=== PATIENT | female | born 1975 ===

== ENCOUNTER 2017-04-13 09:06 | Emergency (ER) | payer OTHER ==
[2017-04-13 09:38] VITALS: TEMP 98.1; O2SAT 98
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
[2017-04-13 11:08] VITALS: BP 122/78; PULSE 82; RESP 16
--- NOTE | 2017-04-13 11:28 | RAD ---
PROCEDURE: Cervical Spine Radiographs. HISTORY: Pain. COMPARISON: None. FINDINGS: BONES: Alignment maintained. No fracture. Dens Intact. DISC SPACES: Normal. SOFT TISSUES: Normal. No prevertebral soft tissue swelling. OTHER FINDINGS: None. IMPRESSION: Normal cervical spine radiographs
== END 2017-04-13 11:08 | disposition home or self-care (01) ==
LOC: H.ER 09:06
DX: S13.9XXA Sprain of joints and ligaments of unspecified parts of neck, initial encounter (principal); V43.52XA Car driver injured in collision with other type car in traffic accident, initial encounter; Y92.410 Unspecified street and highway as the place of occurrence of the external cause; E78.00 Pure hypercholesterolemia, unspecified

== ENCOUNTER 2018-02-23 01:07 | Observation (INO) | payer OTHER ==
[2018-02-23 01:15] VITALS: RESP 18
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
[2018-02-23 13:10] VITALS: BP 121/83; PULSE 94; TEMP 98.5; O2SAT 97
== END 2018-02-23 08:00 | disposition home or self-care (01) ==
LOC: H.EROB2 01:07 → H.L&D 02:48
PROVIDERS: ADMIT Obstetrics & Gynecology; ATTEND Obstetrics & Gynecology
DX: Z04.1 Encounter for examination and observation following transport accident (principal); O24.410 Gestational diabetes mellitus in pregnancy, diet controlled; Z3A.33 33 weeks gestation of pregnancy; V47.5XXA Car driver injured in collision with fixed or stationary object in traffic accident, initial encounter; Y92.410 Unspecified street and highway as the place of occurrence of the external cause; E78.00 Pure hypercholesterolemia, unspecified; O99.283 Endocrine, nutritional and metabolic diseases complicating pregnancy, third trimester

== ENCOUNTER 2018-04-09 10:09 | Emergency (ER) | payer OTHER ==
--- NOTE | 2018-04-09 12:24 | OBHP ---
Datetime: 04/09/2018 11:53 IP Adm Impression: Term, intrauterine ; Intact Membranes IP Admit Plan: Observation/Evaluation; Discharge home Admit Comment, IP Provider: Pt is a 42 yo F IUP @ 39.3wk JERRY is 04/13/18 based on LMP of 06/24 09/08 and 12wk U/S 09/29/17. Pt here for maternal discomfort and B/L low back pain that started yesterda y at 10am, and contractions that started at 4am. Pt reports mild nausea yesterday. Denies vaginal ble eding, LOF, fevers, dizziness, headache, blurry vision, chest pain, SOB, vomiting, diarrhea, constipa tion, dysuria; Reports good movements. PNP: Marcos Barone PNL: Pt has Gestational DM- controlled with unknown medication BID, ABO: O+ , Received TDAP , PPD unknown OB HX: Low lying placenta-resolved. 1 C section- in [facility]- 1997 2 2016- Denies [employer] Skin Toggler Hx: No Hx of Abnormal pap smears or STI's PMHx: HLD, Hypertriglyceridemia Meds: Prenatals, unknown Gest DM med, Vitamin C Allergies: NKDA , kiwi-swelling Surg Hx: C section 1997 Social Hx: Denies smoking, EtOh, drugs Family Hx: Father- HTN, Prostate cancer. Mom-DM Vitals:Initial 141/93, Repeat 129/90 PHYSICAL EXAM General: Obese, Lying in bed, NAD HEENT: NCAT, EOMI Heart: no murmurs, regular rate and rhythm, S1, S2 normal. Lungs: clear to auscultation bilaterally, no wheezing, rales or rhonchi Abdomen: Gravid, soft non tender to palpation, + BS LE: 2+ Edema B/L LE Bimanual- Fingertip dilation Heart Rate: 140, moderate 6-25bpm, category 1, 15x15 A/P: Pt is a 42 yo F IUP @ 39.3wk her for B/L low back and contractions -Monitor in [facility] -Fingertip dilated <1cm, No ROM -Bedside U/S cephalic presentation -Monitor heart tracings -D/c home with labor precautions- return to hospital if t vaginal bleeding, LOF , decreased FM, or contractions that occur closer together and are stronger -Pt advised to go to [facility] to be scheduled for a repeat C section Case reviewed and discussed with Attending Gina Ornelas M.D. PGY-1 Pelvic Type - PN: Adequate Extremities - PN: Abnormal Abdomen - PN: Normal Back - PN: Not Done Breast - PN: Not Done Lungs - PN: Normal Heart - PN: Normal Thyroid - PN: Not Done Neurologic - PN: Not Done HEENT - PN: Normal General - PN: Normal Presentation-Admit: Vertex FHR - Baseline A Provider: 140 Membranes, Provider: Intact Contraction Comments Provider: Yes Q5min Comments, ACOG Physical Exam: Bimanul- fingertip dilation, no ROM U/S cephalic presentation 2+ pitting edema B/L LE Pool Provider: Negative IP Hx Assessment: The History has been Reviewed and is Current EGA AdmitDate IP: 39.3 Vital Signs Provider: Reviewed Vital Signs Provider Details: Initial 141/93, Repeat 129/90 IP Chief Complaint: Uterine contractions; Maternal discomfort NICHD Variability Prov Fetus A: Moderate 6-25bpm NICHD Accel Fetus A IP Provider: 15X15 FHR Category Provider Fetus A: Category I NICHD Decel Fetus A IP Provider: None Dilatation, Provider: 0 Genitourinary Exam: Normal DTRs - PN: Not Done
[2018-04-09 16:48] VITALS: BP 129/90; PULSE 95; RESP 18; TEMP 98.3; O2SAT 99
== END 2018-04-09 12:20 | disposition home or self-care (01) ==
LOC: H.EROB2 10:09
DX: O26.93 Pregnancy related conditions, unspecified, third trimester (principal); M54.5 Low back pain; R10.2 Pelvic and perineal pain; Z3A.39 39 weeks gestation of pregnancy

== ENCOUNTER 2018-04-11 16:23 | Inpatient (IN) | payer OTHER ==
[2018-04-11] MEDS ORDERED: Lactated Ringer's 1,000 ML IV ONE ×2 (17:25→18:46)
--- NOTE | 2018-04-11 18:26 | US ---
Date of service: 04/11/2018 PROCEDURE: Limited ultrasound HISTORY: PRASHANT COMPARISON: None TECHNIQUE: Standard protocol for this study/examination. FINDINGS: Amniotic fluid index 13.38 cm. Cardiac rate 130 beats per minute. Cephalic presentation. IMPRESSION: Amniotic fluid index 13.38 cm.
[2018-04-11] MEDS ORDERED: ceFAZolin 2 GM in Sodium Chloride 0.9% 100 ML IVPB ONE (18:46)
[2018-04-11] MEDS ORDERED: Oxytocin 30 UNIT 30 UNITS/500 ML BAG IV ONE (18:48)
[2018-04-11 18:50] LABS: BASO % 0.3 % (0.0-2.0); EOS % 0.4 % (0.0-4.0); HEMOGLOBIN 12.1 g/dL (12.0-16.0); LYMPH # 2.4 K/uL (1.0-4.3); LYMPH % 34.5 % (20.0-40.0); MEAN CELL VOLUME 87.2 fl (81.0-99.0); MEAN CORPUSCULAR HEMOGLOBIN 28.2 pg (27.0-31.0); MEAN CORPUSCULAR HGB CONC 32.4 g/dL (33.0-37.0); MEAN PLATELET VOLUME 10.7 fl (7.2-11.7); MONO # 0.5 K/uL (0.0-0.8); MONO % 6.7 % (0.0-10.0); NEUT # 4.1 K/uL (1.8-7.0); NEUT % 58.1 % (50.0-75.0); NRBC % 0.1 % (0.0-0.0); RBC 4.28 Mil/uL (3.80-5.20); RED CELL DISTRIBUTION WIDTH 16.3 % (11.5-14.5)
[2018-04-11] MEDS ORDERED: ceFAZolin 1 GM in Sodium Chloride 0.9% 100 ML IVPB ONE (18:56)
[2018-04-11 18:57] LABS: WHITE BLOOD COUNT 7.1 K/uL (4.8-10.8)
[2018-04-11] MEDS ORDERED: OXYTOCIN/0.9 % NS 20 UNIT/1,000 ML BAG IV SCH (19:00)
[2018-04-11 19:02] LABS: SQUAMOUS EPITHIAL < 1 /hpf (0-5); URINE BACTERIA RARE (<OCC); URINE BILIRUBIN NEGATIVE (NEGATIVE); URINE BLOOD NEGATIVE (NEGATIVE); URINE CLARITY CLEAR (Clear); URINE COLOR STRAW (YELLOW); URINE GLUCOSE (UA) NEG (Normal); URINE LEUKOCYTE ESTERASE NEG Leu/uL (Negative); URINE PROTEIN NEGATIVE (NEGATIVE); URINE UROBILINOGEN 0.2-1.0 mg/dL (0.2-1.0)
[2018-04-11 19:09] LABS: ALBUMIN 3.2 g/dL (3.5-5.0); ALT/SGPT 94 U/L (9-52); AST/SGOT 102 U/L (14-36); BLOOD UREA NITROGEN 22 mg/dl (7-17); CALCIUM 9.2 mg/dL (8.4-10.2); GFR NON-AFRICAN AMERICAN > 60; URIC ACID 7.9 mg/Dl (2.2-7.5)
[2018-04-11] MEDS ORDERED: Magnesium Sulfate 4 gm/100 ml 4 GM/100 ML BAG IV ONE (19:59)
[2018-04-11] MEDS ORDERED: Magnesium Sul 40GM/1L SW 40 GM/1,000 ML ML IV ONE (19:59)
--- NOTE | 2018-04-11 20:21 | OBADHP ---
Datetime: 04/11/2018 20:06 IP Chief Complaint Other: Follow up low PRASHANT Admit Comment, IP Provider: 42 y/o @ 39.5 wks w/JERRY 04/13 stating she is here for repeat ultra sound. She endorses +FM, denies vb, ctx or leaking of fluid. She denies f/c/n/v/chest pain or shortne ss of breath. [facility] She received P[facility] from Marcos Barone. OBGYNhx: in [facility], 2 spontaneous abortions PMH: gestational DM, AMA Allergies: NKA Meds: PNV ROS: all points reviewed _ neg unless otherwise mentioned in HPI Gen: laying in bed, no grimacing Cardio: s1 s2, no murmurs Lungs: cta b/l Abd: Gravid, BS+, nontender Low Ext: +1 pitting edema Reflexes: 2-3+ patellar reflexes 42 y/o @ 39.5 wks w/JERRY 04/13 stating she is here for repeat ultrasound. -Repeat PRASHANT was 13.3 -Initiate protocol Patient seen and examined with Dr. Rajendra Gamboa, FM, PGY OB Hospitalist Addendum: Pt seen and examined by me. Agree w/ above. 42 yo at 39+5 wks w / h/o previous c/s in [facility], w/ GDM and elevated BPs sent here by her doctor for repeat PRASHANT. On PRASHANT 2.6 at [place]. Pt desires a . PRASHANT today is 13.3. Explained to pt that given h/ o unknown scar and elevated BPs, strongly recommend delivery via ceasrean section tonight. Ann Blanchard R.N. translated. Consents for section and possible transfusion were obtained. After revie wing her labs (elevated LFTS, uric acid and LDH) and BPs, it was decided to start IV magnesium for se izure prophylaxis. Will proceed w/ section tonight. (ES) FHR - Baseline A Provider: 140's Vital Signs Provider: Reviewed NICHD Variability Prov Fetus A: Moderate 6-25bpm NICHD Accel Fetus A IP Provider: 15X15 FHR Category Provider Fetus A: Category I NICHD Decel Fetus A IP Provider: None IP Adm Impression: Term, intrauterine IP Admit Plan: Admit to unit; Initiate Section protocol Datetime: 04/11/2018 17:45 Extremities - PN: Abnormal Abdomen - PN: Normal Back - PN: Normal Lungs - PN: Normal Heart - PN: Normal Neurologic - PN: Normal General - PN: Normal Membranes, Provider: Intact Contraction Comments Provider: Q 8 Comments, ACOG Physical Exam: Extremities pitting edema DTRs 2-3+ Gestation - Est Wks by US: 30.5 IP Hx Assessment: The History has been Reviewed and is Current IP Chief Complaint: Other (Annotations: Data stored by CPN on behalf of user) Genitourinary Exam: Not Done DTRs - PN: Abnormal EGA AdmitDate IP: 39.5 Datetime: 04/09/2018 11:53 Pelvic Type - PN: Adequate Breast - PN: Not Done Thyroid - PN: Not Done HEENT - PN: Normal Presentation-Admit: Vertex Pool Provider: Negative Vital Signs Provider Details: Initial 141/93, Repeat 129/90 Dilatation, Provider: Krysta
[2018-04-11] MEDS ORDERED: Morphine 1 mg/ml preservative-free Inj(Duramorph) ONE (21:08)
[2018-04-11] MEDS ORDERED: ePHEDrine 50 mg/ml Inj ONE (21:08)
[2018-04-11] MEDS ORDERED: Phenylephrine 10 mg/ml Inj ONE (21:08)
[2018-04-11] MEDS ORDERED: Oxycodone/Acetaminophen 5/325 mg Tab PO PRN ×2 (22:44)
[2018-04-11] MEDS ORDERED: Lactated Ringer's 1,000 ML IV SCH (22:45)
--- NOTE | 2018-04-11 23:33 | OBDS ---
MATERNAL INFORMATION Provider Comments: Pre-op dx: 42 yo at 39+5 wks w/ history of previous section w/ u nknown scar, severe pre-eclampsia Post-op dx : Same Procedure: Repeat section Surgeon: Rajendra Topographical Engineer: Drs. Mc and Gina Ornelas, PGY-1 Anesthesiologist: Dr. Hester Anesthesia: Spinal Findings: Viable male infant delivered through clear fluid at 2153. Apgars 9 and 9. Wt 3720 gms, 8#3. Nl appearing uterus, tubes and ovaries Complications: None EBL: 900mL LABOR SUMMARY EDC: 04/13/2018 00:00 No. Babies in Womb: 1 LABOR INFORMATION Group B Beta Strep: Negative
[2018-04-12 00:23] LABS: BASO % 0.2 % (0.0-2.0); EOS % 0.3 % (0.0-4.0); HEMOGLOBIN 8.1 g/dL (12.0-16.0); LYMPH # 2.6 K/uL (1.0-4.3); LYMPH % 24.9 % (20.0-40.0); MEAN CELL VOLUME 87.8 fl (81.0-99.0); MEAN CORPUSCULAR HEMOGLOBIN 28.3 pg (27.0-31.0); MEAN CORPUSCULAR HGB CONC 32.2 g/dL (33.0-37.0); MEAN PLATELET VOLUME 9.9 fl (7.2-11.7); MONO # 0.5 K/uL (0.0-0.8); MONO % 4.3 % (0.0-10.0); NEUT # 7.4 K/uL (1.8-7.0); NEUT % 70.3 % (50.0-75.0); RBC 2.86 Mil/uL (3.80-5.20); RED CELL DISTRIBUTION WIDTH 16.5 % (11.5-14.5); WHITE BLOOD COUNT 10.6 K/uL (4.8-10.8)
[2018-04-12 00:54] VITALS: BMI 31.1
[2018-04-12] MEDS ORDERED: OXYTOCIN/0.9 % NS 20 UNIT/1,000 ML BAG IV SCH ×3 (01:00→09:18)
[2018-04-12] MEDS ORDERED: Simethicone 80 mg Chewtab PO SCH (04:00)
--- NOTE | 2018-04-12 05:52 | OP ---
PROCEDURE DATE: 04/11/2018 PREOPERATIVE DIAGNOSIS: A 42-year-old G4, P 1-0-2-1 at 39 weeks and 5 days with a history of a previous section with unknown scar and severe preeclampsia. POSTOPERATIVE DIAGNOSIS: A 42-year-old G4, P1-0-2-1 at 39 weeks and 5 days with a history of a previous section with unknown scar and severe preeclampsia. PROCEDURE: Repeat section. SURGEON: Aurora Drew MD HEALTHCARE MARKETER: There was no qualified resident to be the primary language assistant so Dr. Mc was the primary language assistant. Dr. Mc participated in the surgery for the entire duration of the case. He helped create exposure. He also helped maintain hemostasis, operated throughout the case on the side of the patient that was across from him and assisted in the delivery of the by applying fundal pressure. he also repaired the uterine extension. This case could not have been completed without his assistance. Dr. Gian Ornelas, PGY-1 was the second language assistant. TYPE OF ANESTHESIA: Spinal. ANESTHESIA ADMINISTERED BY: Dr. Sanjiv Hester. FINDINGS: Viable male infant delivered through clear fluid at 2153. The Apgars were 9 and 9 at one and five minutes respectively. The weight was 3720 g or 8 pounds 3 ounces. Normal-appearing uterus, tubes, and ovaries. ESTIMATED BLOOD LOSS: 900 mL. COMPLICATIONS: None. DESCRIPTION OF PROCEDURE: The patient was taken to the operating room with IV running and spinal anesthesia was placed. She was then prepped and draped in the normal sterile fashion in the dorsal supine position with a leftward tilt. A Ayoub had been placed in the bladder. The spinal was tested and found to be adequate. A Pfannenstiel skin incision was made with the scalpel and carried through to the underlying layer of fascia with the Bovie. The fascia was incised in the midline and the incision was extended laterally with the Bovie. The inferior aspect of the fascial incision was then grasped with Narendra clamps, elevated, and the underlying rectus muscles were dissected off bluntly and with the Bovie. Attention was then turned to the superior aspect of this incision, which in a similar fashion was grasped, tented up with the Narendra clamps, and the rectus muscles were dissected off bluntly and with the Bovie. The rectus muscles were then in the midline, held up with Allis clamps, and the scalpel was used to separate the muscles. The peritoneum was then identified and entered digitally. The peritoneal incision was then extended superiorly and inferiorly with good visualization of the bladder. The bladder blade was then inserted and the vesicouterine peritoneum was identified, grasped with the pickups and entered sharply with the Metzenbaum scissors. The incision was then extended laterally, and the bladder flap was created digitally. The bladder flap was noted to be scarred. The bladder blade was then reinserted and the lower uterine segment was incised in a transverse fashion with the scalpel. The uterine incision was then extended laterally, digitally. The bladder blade was removed and the 's head was delivered atraumatically. The cord was clamped and cut. The was handed off to the awaiting block mason. Blood was collected and a piece of the cord was cut off for the tissue collection. Blood, cord and the placenta were collected for [place]. The cord blood was then collected. The placenta was then delivered as the uterus was massaged. The uterus was exteriorized and cleared of all clots and debris with dry sponge curettage. There was noted to be an extension on the left side of the uterus, which was first repaired with 2-0 Vicryl in a running locked fashion. The uterine incision was then repaired with 0 Vicryl in a running locked fashion. A second layer of the same suture was used to obtain hemostasis and to reinforce the incision, and finally, a second suture of 2-0 Vicryl was placed over the area of the extension to reinforce that incision as well. The abdomen was then well irrigated. The uterus was returned to the abdomen. The gutters were cleared of all clots, and the peritoneum was closed with 2-0 chromic. The rectus muscle was then reapproximated with a few interrupted stitches of 0 chromic. There was noted to be some bleeding in the muscle, and this was repaired with a [id number] of 2-0 chromic. Hemostasis was noted. The fascia was then reapproximated with 0 Vicryl in a running fashion. Subcutaneous fat was well irrigated. The Bovie was applied to bleeders for hemostasis. The space of the fat was closed with interrupted stitches of 2-0 plain gut. The skin was then closed in a subcuticular fashion with 4-0 Monocryl. The patient tolerated the procedure well. Sponge, lap, and needle counts were correct. The patient received 1 g of Ancef prior to the procedure. The patient was taken to the recovery room in stable condition. Aurora Drew MD MTDD
[2018-04-12 06:16] LABS: HEMOGLOBIN 8.4 g/dL (12.0-16.0); MEAN CELL VOLUME 90.3 fl (81.0-99.0); MEAN CORPUSCULAR HEMOGLOBIN 28.9 pg (27.0-31.0); RBC 2.9 Mil/uL (3.80-5.20); RED CELL DISTRIBUTION WIDTH 16.9 % (11.5-14.5); WHITE BLOOD COUNT 12.4 K/uL (4.8-10.8)
[2018-04-12] MEDS ORDERED: Magnesium Sul 40GM/1L SW 40 GM/1,000 ML ML IV ONE ×2 (06:23→16:08)
[2018-04-12] MEDS ORDERED: Lactated Ringer's 1,000 ML IV SCH ×3 (06:30→09:18)
[2018-04-12 06:51] LABS: ALB/GLOB RATIO 0.8 (1.0-2.1); ALBUMIN 2.2 g/dL (3.5-5.0); ALT/SGPT 84 U/L (9-52); AST/SGOT 77 U/L (14-36); BLOOD UREA NITROGEN 20 mg/dl (7-17); GFR NON-AFRICAN AMERICAN > 60
[2018-04-12] MEDS ORDERED: Multivitamin With Minerals Tab PO SCH (09:00)
[2018-04-12] MEDS ORDERED: Oxycodone/Acetaminophen 5/325 mg Tab PO PRN ×2 (09:18→22:02)
[2018-04-12] MEDS ORDERED: Lactated Ringer's 1,000 ML IV ONE (09:18)
[2018-04-12] MEDS ORDERED: Oxycodone/Acetaminophen 5/325 mg Tab ONE (09:37)
[2018-04-12] MEDS: Oxycodone/Acetaminophen 5/325 mg Tab PO PRN ×2 (09:55→20:16)
[2018-04-12] MEDS: Simethicone 80 mg Chewtab PO SCH ×3 (11:35→22:22)
--- NOTE | 2018-04-12 13:57 | OBPPN ---
Datetime: 04/12/2018 07:09 PP Pain Prov: Within normal limits PP Nausea Prov: Denies PP Flatus Prov: No PP BM Prov: No PP Progress Note Prov: POD1 S: 42yo . Seen and examined at bedside. Patient was bleeding overnight, Hg dropped from 12 to 8.4 denies bleeding this AM, her BP was also 166/97 repeat is 149/90 and was restarted on Mg this AM. Pt reports mild pelvic pain controlled with pain meds. Breast/Bottle feeding without difficulty. Tolerating PO diet well. still has clark, No Bowel movement or passing gas yet. Denies fever/chills, diarrhea/constipation, nausea/vomiting, CP/SOB, dizziness, calf pain. Desires circumcision for O: BP166/97 repeat 149/90 PHYSICAL EXAM: GEN: Resting comfortably in bed, NAD LUNGS: CTA B/L, no wheezing, rhonchi, or rales CVS: RRR, S1, S2, no m/r/g ABD: ND, +BS, firm fundus @ umbilical level. Incision covered, dressing clean dry and intact no bl ood noted,Soft, appropriate TTP EXT: wearing SCD's A/P: 42yo s/p on 04/11/18 @ 21:53.POD1 C/w Mag, check Mg level, DTR's Advance to regular diet as tolerated. Discontinue Clark OOB with caution Continue vitamin Ibuprofen 600 mg 1 tab q/ 6 hrs po if mild pain. Percocet 5/325 mg 1-2 tablets po q/ 6 hrs if severe pain Encourage Colace 100mg PO BID for constipation Simethicone 80mg BID for gas F/u CMP and CBC for this AM SCDs for DVT prophylaxis Anticipate discharge to home on 04/14/18 F/U in 4-6 weeks post- with [facility] Case reviewed and discussed with Attending Gina Cade M.D. PGY-1 OB Hospitalist on-call. Case rev'd with Dr Lewis from last night. MgSO4 re-started. continue 24h Vital Signs Provider PP: Reviewed Vital Signs Provider Details PP: BP 166/97 repeat 149/90
[2018-04-13] MEDS: Oxycodone/Acetaminophen 5/325 mg Tab PO PRN ×4 (04:22→23:48)
[2018-04-13] MEDS: Simethicone 80 mg Chewtab PO SCH ×4 (04:23→22:29)
--- NOTE | 2018-04-13 08:43 | OBPPN ---
Datetime: 04/13/2018 06:49 PP Pain Prov: Within normal limits PP Nausea Prov: Denies PP Flatus Prov: Yes PP BM Prov: No PP Breasts Prov: Not Done PP Heart Prov: Normal PP Lungs Prov: Normal PP Abdomen/Uterus Prov: Normal PP Lochia Prov: Normal PP Vulva/Perineum Prov: Not Done PP CVA Tenderness Prov: Not Done PP Extremities Prov: Normal PP C/S Incision Prov: Normal PP Progress Prov: Normal PP Impression Prov: Normal progression PP Plan Prov: Continue present management PP Progress Note Prov: Voyce: [id number] POD2 S: 42yo . Seen and examined at bedside. Patient bleeding has decreased now lochia is simila r to menses, Pt is off magnesium, BP is 123/74 @ 4AM. Pt reports mild pelvic pain controlled with anthony n meds. Breast and Bottle feeding without difficulty. Tolerating PO diet well. Ayoub removed, No Albino l movement, she is passing gas . Denies fever/chills, diarrhea/constipation, nausea/vomiting, CP/SOB, dizziness, calf pain. Desires circumcision for infant O: BP: 123/74 PHYSICAL EXAM: GEN: Resting comfortably in bed, NAD LUNGS: CTA B/L, no wheezing, rhonchi, or rales CVS: RRR, S1, S2, no m/r/g ABD: ND, +BS, firm fundus @ umbilical level. Incision covered, dressing clean dry and intact no bl ood noted, Soft, appropriate TTP EXT: wearing compression stockings, decreased edema A/P: 42yo s/p on 04/11/18 @ 21:53.POD2 Tolerating regular diet OOB with caution Continue vitamin Ibuprofen 600 mg 1 tab q/ 6 hrs po if mild pain. Percocet 5/325 mg 1-2 tablets po q/ 6 hrs if severe pain Encourage Colace 100mg PO BID for constipation Simethicone 80mg BID for gas Anticipate discharge to home on 04/14/18 Pt went to [place] for care wants to F/U in 4-6 weeks post- with [facility], emailed saima Case reviewed and discussed with Attending Gina Cade M.D. PGY-1 The patient was ssen witht the resident I agree with the note IP PP Procedures: None Vital Signs Provider PP: Reviewed; Within Normal Limits
[2018-04-13] MEDS ORDERED: Multivitamin With Minerals Tab PO SCH (09:00)
[2018-04-13] MEDS: Multivitamin With Minerals Tab PO SCH (09:00)
[2018-04-14] MEDS: Simethicone 80 mg Chewtab PO SCH (05:32)
[2018-04-14] MEDS: Multivitamin With Minerals Tab PO SCH (08:05)
--- NOTE | 2018-04-14 10:23 | OBDCSUM ---
Datetime: 04/14/2018 06:32 Discharged to, Provider: Home Follow up at, Provider: [facility] Disch Instr Activity: Normal activity Disch Instr Diet: Regular Discharge Instructions, Provider: Routine instructions given Discharge Diagnosis, Provider: Term Delivered; Preeclampsia Discharge Time: 04/14/2018 12:00 Follow up in weeks, Provider: 1 week Disch Referrals: None Contraception discussed, Prov: Yes Disch Activity Restrictions: No exercising; No lifting; Minimize stair-climbing; No sexual activity; Nothing in vagina - [place], tampons, douche Discharge Comment, Provider: DISCHARGE 42yo s/p on 04/11/18 @ 21:53.POD3 EGA: 39.5 weeks Diagnosis: C section- had severe preeclampsia was started on MG, MG was stopped pt's blood pressur e has been under control for over 24 hours 126/70 Summary of : Hx Gest DM L_D summary: C section DOD: 04/11 @ 21:53 Sex: Male Weight: 3720gm : 9/9 Feeding: breast and bottle summary: Pt had elevated BP after delivery needed to be on MG, BP has normalized, Pt had heavy lochia, Hg d ropped from 12.1 to 8.1 on repeat CBC Hg went up to 8.4. Today pt states lochia has decreased and is light. Pt hemodynamically stable BP 126/70 CBC : 8.4/26.1 (admission 12.1/37.3) Blood type: O+ DISCHARGE DATA D/C DATE: 04/14/2018 DISCHARGE INSTRUCTIONS: -Encouraged -PNV 1 tab po q/day -Ibuprofen 600 mg 1 tab po q4-6h PRN mild pain #30 -Percocet 5/325mg 1 tab po Q 6h PRN severe pain #20 -Colace 100mg 1 tab po BID PRN constipation #10 -Ambulate with caution, nothing per vagina/sex for 4 weeks, no heavy lifting, avoid stairs, if exc essive bleeding or fever without relief from Tylenol go to ED F/U at for wound check and appt in 1 week and post- appt in 4-6 weeks. Case reviewed and discussed with Attending Gina Ornelas M.D. PGY-1 Contraception after Delivery: Undecided
--- NOTE | 2018-04-14 10:23 | OBPPN ---
Datetime: 04/14/2018 06:34 PP Pain Prov: Within normal limits PP Nausea Prov: Denies PP Flatus Prov: Yes PP BM Prov: No PP Breasts Prov: Not Done PP Heart Prov: Normal PP Lungs Prov: Normal PP Abdomen/Uterus Prov: Normal PP Lochia Prov: Normal PP Vulva/Perineum Prov: Not Done PP CVA Tenderness Prov: Not Done PP Extremities Prov: Normal PP C/S Incision Prov: Normal PP Progress Prov: Normal PP Impression Prov: Normal progression PP Plan Prov: Continue present management PP Progress Note Prov: Voyce: [id number] POD3 S: 42yo . Seen and examined at bedside. Pt has had an uneventful overnight. Pt reports mild pelvic pain controlled with pain meds. Patient lochia is similar to menses, Pt has been off magnesiu m for 2 days, BP was 123/74 @ 4AM yesterday today its 126/70. Breast and Bottle feeding without diffi culty. Tolerating PO diet well. Urinating well, No Bowel movement, she is passing gas. Denies fever/c hills, diarrhea/constipation, nausea/vomiting, CP/SOB, dizziness, calf pain. Desires circumcision for O: BP: 126/70 PHYSICAL EXAM: GEN: Resting comfortably in bed, NAD LUNGS: CTA B/L, no wheezing, rhonchi, or rales CVS: RRR, S1, S2, no m/r/g ABD: ND, +BS, firm fundus @ umbilical level. Incision clean dry and intact no blood noted, Soft, a ppropriate TTP EXT: decreased edema A/P: 42yo s/p on 04/11/18 @ 21:53.POD3 Tolerating regular diet OOB with caution Continue vitamin Ibuprofen 600 mg 1 tab q6 hrs po if mild pain. Percocet 5/325 mg 1-2 tablets po q6 hrs if severe pain Encourage Colace 100mg PO BID for constipation Simethicone 80mg BID for gas Discharge to home today 04/14/18 Pt went to [place] for care wants to F/U in 4-6 weeks post- with [facility], emailed saima Case reviewed and discussed with Attending Gina Cade M.D. PGY-[address] Casas: I have evaluated the patient independently and I agree with the above IP PP Procedures: None Vital Signs Provider PP: Reviewed; Within Normal Limits
[2018-04-15 01:25] VITALS: BP 139/90; PULSE 104; RESP 20; TEMP 98.5; O2SAT 97
== END 2018-04-14 21:24 | disposition home or self-care (01) | DRG 371 ==
LOC: H.EROB2 16:23 → H.ERHOLD 19:33 → H.L&D 20:12 → H.OB/GYN 04-12 21:23
PROVIDERS: ADMIT Obstetrics & Gynecology; ATTEND Obstetrics & Gynecology
PROC: 10D00Z1 Extraction of Products of Conception, Low, Open Approach (ICD-10-PCS; principal; 2018-04-11)
PROC: 4A1HXCZ Monitoring of Products of Conception, Cardiac Rate, External Approach (ICD-10-PCS; 2018-04-11)
DX: O34.211 Maternal care for low transverse scar from previous cesarean delivery (principal); O14.14 Severe pre-eclampsia complicating childbirth; N85.8 Other specified noninflammatory disorders of uterus; Z3A.39 39 weeks gestation of pregnancy; Z37.0 Single live birth; Z86.32 Personal history of gestational diabetes